=== PATIENT | female | born 1985 | race Caucasian/White ===

== ENCOUNTER 2020-07-03 15:15 | Emergency (ER) | payer MEDICAID, SELFPAY ==
[2020-07-03] VITALS (41 sets, daily range): BP systolic 104–128; BP diastolic 63–89; PULSE 61–94; RESP 12–20; TEMP 36.1; O2SAT 91–100
--- NOTE | ~2020-07-03 | XR_ITS ---
EXAMINATION: XR chest 1V portable DATE: 07/03/2020 16:25 INDICATION: Overdose. TECHNIQUE: A single frontal view of the chest was obtained. COMPARISON: None. FINDINGS: The lung volumes are small. There is mild atelectasis in the mid and lower lung zones. No p leural effusion or pneumothorax. The heart size is normal. IMPRESSION: 1. Small lung volumes with mild atelectasis in the mid and lower lung zones. Reviewed, dictated and finalized at location A. [facility] APPRENTICE
--- NOTE | 2020-07-03 15:25 | PC.NURSE ---
report to [facility], to continue care.
[2020-07-03] MEDS: SODIUM CHLORIDE 0.9% IV 1,000 ML 999 ML IV CONT (15:28)
--- NOTE | 2020-07-03 15:34 | PC.NURSE ---
call placed to [place] [facility]
[2020-07-03 15:53] LABS: Alveolar/Arterial O2 Gradient 38.7 mmHg; Base Excess ABG -2.7 mEq/l (+/-2.0); Fractional Inspired Oxygen 28 %; HCO3 ABG 22.8 mEq/l (22.0-26.0); Oxygen Content ABG 18.6 %vol (16.0-22.0); Oxygen Saturation ABG 97.9 % (95.0-100.0); Oxyhemoglobin 96.5 % THb (90.0-100.0); PCO2 ABG 41.8 mmHg (35.0-45.0); PO2 ABG 111.6 mmHg (80.0-100.0); PO2 FiO2 Ratio Arterial Blood 3.99 %; Total Hemoglobin 13.6 g/dL (12.0-18.0); pH ABG 7.354 (7.350-7.450)
[2020-07-03 15:55] LABS: Device NASAL CANNULA; Site Drawn LEFT BRACHIAL
--- NOTE | 2020-07-03 16:00 | ED.OVERDOSE ---
HPI - Overdose General Chief Complaint: Overdose <Meir Wilkinson MD - Last Filed: 07/04/20 18:49> Stated Complaint: Overdose <Meir Wilkinson MD - Last Filed: 07/04/20 18:49> Time Seen by Provider: 07/03/20 15:21 <Meir Wilkinson MD - Last Filed: 07/04/20 18:49> History of Present Illness HPI Narrative: Patient is a 34-year-old female who presents ER after a suicide attempt. Patient reports last night around 12:30 AM she ingested 30 tablets of 0.5 mg Xanax. States she is undergoing a lot of stress and is currently breaking up with her significant other. Denies previous attempts on her own life. Patient refuses to elaborate or expand on any additional issues that may be going on at home. She has no other complaints. <Meir Wilkinson MD - Last Filed: 07/04/20 18:49> Related Data Home Medications: Home Medications Medication Instructions Recorded Confirmed Unable to Obtain Home Medications 07/03/20 07/03/20 <Meir Wilkinson MD - Last Filed: 07/04/20 18:49> Allergies/Adverse Reactions: Allergies Allergy/AdvReac Type Severity Reaction Status Date / Time Unable to Assess Allergy Verified 07/03/20 15:50 <Meir Wilkinson MD - Last Filed: 07/04/20 18:49> Review of Systems Review of Systems: All systems reviewed & are unremarkable except as noted in HPI and below <Meir Wilkinson MD - Last Filed: 07/04/20 18:49> Constitutional: Constitutional: Denies chills, Denies fever(s) and Denies weakness <Meir Wilkinson MD - Last Filed: 07/04/20 18:49> Cardiovascular: Cardiovascular: Denies chest pain and Denies radiating jaw, neck or arm pain <Meir Wilkinson MD - Last Filed: 07/04/20 18:49> Respiratory: Respiratory: Denies cough, Denies dyspnea and Denies wheezing <Meir Wilkinson MD - Last Filed: 07/04/20 18:49> Gastrointestinal: Gastrointestinal: Denies abdominal pain, Denies diarrhea, Denies nausea and Denies vomiting <Meir Wilkinson MD - Last Filed: 07/04/20 18:49> Psychiatric: Psychiatric: Reports depression, Denies homicidal ideation and Reports suicidal ideation <Meir Wilkinson MD - Last Filed: 07/04/20 18:49> PMFSH Past Medical History Medical History: Medical History (Updated 07/04/20 @ 18:48 by Meir Wilkinson MD) Healthy female adult <Meir Wilkinson MD - Last Filed: 07/04/20 18:49> Surgical History Surgical History: Surgical History (Updated 07/03/20 @ 16:26 by Meir Wilkinson MD) History of cholecystectomy History of mandibular surgery <Meir Wilkinson MD - Last Filed: 07/04/20 18:49> Social History Social History: Social History Gender identity (if verbalized by the patient): Female <Meir Wilkinson MD - Last Filed: 07/04/20 18:49> Exam Narrative: Exam Narrative: GENERAL: Fatigued-appearing, well-nourished, and in no acute distress. HEAD: Normocephalic, atraumatic. EYES: PERRL and EOMI. ENT: Mucous membranes moist. CHEST: Clear to auscultation. No respiratory distress. HEART: Regular rate and rhythm. Normal peripheral pulses. ABDOMEN: Soft, nontender, nondistended. EXTREMITIES: Normal range of motion. No edema. SKIN: Warm, dry, no rash. NEURO: Alert and oriented x3. PSYCH: Depressed mood with flat affect and suicidal ideation. <Meir Wilkinson MD - Last Filed: 07/04/20 18:49> Course Course Emergency Course: Patient more awake. Given Narcan with no change, transient hypoxia due to SUSANNA. She admits to cocaine use last night in addition to her benzodiazepines. She is concerned about being admitted against her will but discussed she has no choice of medicine she tried in her own life. Her main concern is the fact that she has children who are supposed to be staying with her however they were at their father's house last night and I told her I am sure they could probably continue to stay with her other parent. CRISIS contacted. <Meir Wilkinson MD - Last Stefan
[2020-07-03 16:06] LABS: Basophils Percent Auto 0.4 % (0.2-1.2); Eosinophils Absolute Auto 0.1 K/mm3 (0-0.3); Eosinophils Percent Auto 2.5 % (0-4.4); Hematocrit 39.9 % (37.0-47.0); Hemoglobin 13.3 g/dL (12.0-15.0); Immature Granulocyte Absolute 0.02 K/mm3 (0.00-0.031); Immature Granulocyte Percent A 0.4 % (0-0.5); Lymphocytes Absolute Auto 1.46 K/mm3 (0.9-3.2); Lymphocytes Percent Auto 28.3 % (18.3-44.2); Mean Corpuscular HGB Conc 33.3 g/dl (32-36); Mean Corpuscular Hemoglobin 29.3 pg (26-34); Mean Corpuscular Volume 87.9 fl (80-100); Mean Platelet Volume 9.3 fl (7.4-10.4); Monocytes Absolute Auto 0.4 K/mm3 (0.1-0.6); Monocytes Percent Auto 7.8 % (2.6-8.5); Neutrophils Absolute Auto 3.1 K/mm3 (1.3-6.7); Neutrophils Percent Auto 60.6 % (45.5-73.1); Platelet Count Result 206 k/mm3 (150-375); Red Blood Count 4.54 M/mm3 (4.2-5.4); Red Cell Distribution Width 12.4 % (11.5-14.5); White Blood Count 5.2 K/mm3 (4.5-10.0)
[2020-07-03 16:17] LABS: Acetaminophen < 10 ug/mL (10-30); Ethanol < 10 mg/dL (<10); Salicylate < 1.0 mg/dL (2-20)
[2020-07-03 16:18] LABS: Alanine Aminotransferase 79 U/L (4-35); Albumin Level 3.9 g/dL (3.5-5.1); Alkaline Phosphatase 58 U/L (38-126); Anion Gap 6 mmol/L (8-16); Aspartate Amino Transferase 63 U/L (14-36); Bilirubin,Total 1.3 mg/dL (0.2-1.3); Blood Urea Nitrogen 14 mg/dL (7-17); Calcium 8.7 mg/dL (8.4-10.2); Carbon Dioxide 28 mmol/L (22-30); Chloride 108 mmol/L (98-107); Estimated CRCL calculation 100 ml/min; Estimated Glomerular Filt Rate > 60; Glucose 86 mg/dL (65-105); Lactic Acid Reflex 0.6 mmol/L (0.7-2.1); Partial Thromboplastin Time 28.1 SECONDS (22.3-36.8); Potassium 3.7 mmol/L (3.4-5.0); Sodium 142 mmol/L (137-145)
[2020-07-03] MEDS: NALOXONE HCL 0.4 MG/ML VIAL IV PUSH (16:47)
[2020-07-03 17:31] LABS: Add Urine Microscopic? NO; Appearance Urine Clear (Clear); Bilirubin Urine Negative (Negative); Blood Urine Negative (Negative); Color Urine Yellow (Yellow); Glucose Urine UA Negative (Negative); Ketones Urine Negative (Negative); Leukocyte Esterase Ur Negative LEU/UL (Negative); Nitrate Urine Negative (Negative); Protein Urine Negative (Negative); Specific Grav Ur 1.014 (1.001-1.035); Urobilinogen Urine Negative mg/dL (<2.0)
[2020-07-03 17:51] LABS: Amphetamine Screen Urine Negative (Negative); Barbiturate Screen Urine Negative (Negative); Benzodiazepines Screen Urine Positive (Negative); Cannabinoid Screen Urine Negative (Negative); Cocaine Screen Urine Positive (Negative); Methadone Screen Urine Negative (Negative); Opiate Screen Urine Negative (Negative); Phencyclidine Screen Urine Negative (Negative)
--- NOTE | 2020-07-03 18:03 | PC.NURSE ---
crisis called to evaluate patient
--- NOTE | 2020-07-03 19:17 | PC.NURSE ---
assembly worker here to evaluate patient
--- NOTE | 2020-07-03 21:11 | PC.NURSE ---
[facility] called to report that they have no open beds at this time and they will add patient to a wait list
--- NOTE | 2020-07-03 21:38 | PC.NURSE ---
requested paperwork faxed to [facility]
--- NOTE | 2020-07-03 22:28 | PC.NURSE ---
spoke with Roma at [place] [facility] . has been closed and patient cleared
--- NOTE | 2020-07-03 22:49 | PC.NURSE ---
more paperwork faxed to [facility] per their request
--- NOTE | 2020-07-03 23:06 | PC.NURSE ---
rn report from Lori.
--- NOTE | 2020-07-04 00:41 | PC.NURSE ---
rn report given to Beatriz, [place] [phone].
--- NOTE | 2020-07-04 00:44 | PC.NURSE ---
Accepting Dr. Price, Room 200-1
--- NOTE | 2020-07-04 02:09 | PC.NURSE ---
ortez has arrived
[2020-07-04 17:05] LABS: SARS-CoV-2 RNA PCR Negative
== END 2020-07-04 02:24 ==
PROVIDERS: Emergency Provider Emergency Medicine; PCP Physician Assistant
DX: T42.4X2A Poisoning by benzodiazepines, intentional self-harm, initial encounter (principal); F32.9 Major depressive disorder, single episode, unspecified; Z20.828 Contact with and (suspected) exposure to other viral communicable diseases
CPT/HCPCS: 36415; 36600; 51701; 71045; 80053; 80307; 81003; 81025; 82805; 83605; 85025; 85610; 85730; 87635; 96361; 96374; 99285; C9803; J2310; J7030; U0003

== ENCOUNTER 2021-12-22 10:49 | Outpatient (CLI) | payer BC, SELFPAY ==
[2021-12-22 11:48] LABS: Alanine Aminotransferase 36 U/L (6-35); Albumin Level 4.5 g/dL (3.5-5.1); Alkaline Phosphatase 67 U/L (38-126); Anion Gap 7 mmol/L (8-16); Aspartate Amino Transferase 29 U/L (14-36); Bilirubin,Total 1.1 mg/dL (0.2-1.3); Blood Urea Nitrogen 17 mg/dL (7-17); Carbon Dioxide 27 mmol/L (22-30); Chloride 102 mmol/L (98-107); Cholesterol 188 mg/dL (0-200); Estimated Glomerular Filt Rate > 60; Glucose 83 mg/dL (65-110); HDL Direct 41 mg/dL; Sodium 136 mmol/L (137-145); Triglycerides 229 mg/dL (<150)
[2021-12-22 11:55] LABS: Hematocrit 41.8 % (37.0-47.0); Hemoglobin 13.7 g/dL (12.0-15.0); Mean Corpuscular HGB Conc 32.8 g/dl (32-36); Mean Corpuscular Volume 85.3 fl (80-100); Mean Platelet Volume 10.2 fl (7.4-10.4); Platelet Count Result 255 k/mm3 (150-375); Red Cell Distribution Width 13.1 % (11.5-14.5); White Blood Count 5.8 K/mm3 (4.5-10.0)
[2021-12-22 11:59] LABS: LDL Cholesterol Direct 84 mg/dL
== END 2021-12-22 10:50 | disposition home or self-care (01) ==
PROVIDERS: PCP Physician Assistant; Visit Provider Physician Assistant
DX: Z01.812 Encounter for preprocedural laboratory examination (principal)
CPT/HCPCS: 36415; 80053; 80061; 85027

== ENCOUNTER 2022-07-06 20:13 | Emergency (ER) | payer BC, SELFPAY ==
[2022-07-06 20:16] VITALS: BP 148/111; PULSE 73; RESP 18; TEMP 36.3; O2SAT 98
[2022-07-06 22:36] LABS: Basophils Percent Auto 0.5 % (0.2-1.2); Hematocrit 45.6 % (37.0-47.0); Hemoglobin 15.8 g/dL (12.0-15.0); Immature Granulocyte Absolute 0.01 K/mm3 (0.00-0.031); Immature Granulocyte Percent A 0.2 % (0-0.5); Lymphocytes Absolute Auto 1.36 K/mm3 (0.9-3.2); Lymphocytes Percent Auto 31.7 % (18.3-44.2); Mean Corpuscular HGB Conc 34.6 g/dl (32-36); Mean Corpuscular Hemoglobin 29.9 pg (26-34); Mean Corpuscular Volume 86.4 fl (80-100); Mean Platelet Volume 10.2 fl (7.4-10.4); Monocytes Absolute Auto 0.4 K/mm3 (0.1-0.6); Monocytes Percent Auto 10.3 % (2.6-8.5); Neutrophils Absolute Auto 2.5 K/mm3 (1.3-6.7); Neutrophils Percent Auto 57.3 % (45.5-73.1); Platelet Count Result 195 k/mm3 (150-375); Red Blood Count 5.28 M/mm3 (4.2-5.4); Red Cell Distribution Width 13.2 % (11.5-14.5); White Blood Count 4.3 K/mm3 (4.5-10.0)
[2022-07-06 23:02] LABS: Alanine Aminotransferase 122 U/L (6-35); Albumin Level 4.6 g/dL (3.5-5.1); Alkaline Phosphatase 101 U/L (38-126); Anion Gap 14 mmol/L (8-16); Aspartate Amino Transferase 125 U/L (14-36); Bilirubin,Total 0.8 mg/dL (0.2-1.3); Blood Urea Nitrogen 14 mg/dL (7-17); Calcium 8.9 mg/dL (8.4-10.2); Carbon Dioxide 18 mmol/L (22-30); Chloride 107 mmol/L (98-107); Estimated CRCL calculation 142 ml/min; Estimated Glomerular Filt Rate > 60; Glucose 125 mg/dL (65-110); Lipase 46 U/L (23-300); Potassium 3.3 mmol/L (3.4-5.0); Sodium 139 mmol/L (137-145)
[2022-07-06 23:16] LABS: Influenza A QL RT-PCR Positive (Negative); Influenza B QL RT-PCR Negative (Negative); RSV RNA, RT-PCR Negative (Negative); SARS-CoV-2 RNA PCR Negative
--- NOTE | 2022-07-06 23:56 | ED.NAVMDI ---
HPI - Nausea/Vomiting/Diarrhea General Chief complaint: Nausea/Vomiting/Diarrhea Stated complaint: flu like sxs Time Seen by Provider: 07/06/22 23:25 History of Present Illness HPI Narrative: 36-year-old female status post gastric bypass presents to the emergency room for evaluation of body aches, headache, productive cough nausea vomiting. Patient states that she has been experiencing a fever intermittently and since Tuesday has been taking Tylenol for it. Related Data Allergies Allergy/AdvReac Type Severity Reaction Status Date / Time vancomycin Allergy Anaphylaxis Verified 07/06/22 20:19 morphine AdvReac Vomiting Verified 07/06/22 20:19 Review of Systems Review of Systems: CONSTITUTIONAL: Denies fever, chills, or sweats. EYES: Denies visual changes, redness, or discharge. ENT: Denies rhinorrhea, congestion, sore throat, or otalgia. CARDIOVASCULAR: Denies chest pain, palpitations, or edema. RESPIRATORY: Denies cough or dyspnea. GASTROINTESTINAL: Reports nausea and vomiting GENITOURINARY: Denies dysuria or hematuria. SKIN: Denies rash or itching. MUSCULOSKELETAL: Denies back pain, joint pain, or myalgia. NEUROLOGIC: Denies headache, numbness, dizziness, or weakness. PSYCHIATRIC: Denies anxiety or depression. [facility] Past Medical History Medical History (Updated 07/07/22 @ 00:20 by Emerson Maciel APRN) Healthy female adult Surgical History Surgical History (Updated 07/03/20 @ 16:26 by Meir Wilkinson MD) History of cholecystectomy History of mandibular surgery Social History Social History Gender identity (if verbalized by the patient): Female Exam Narrative: GENERAL: obvious emotional and physical distress. HEAD: Normocephalic, atraumatic. EYES: Conjunctivae normal, PERRLA and EOMI. CHEST: Clear to auscultation. No respiratory distress. No wheezes rales or rhonchi. HEART: Regular rate and rhythm. No murmur heard. Normal peripheral pulses. ABDOMEN: Soft, nontender, nondistended, normal active bowel sounds. EXTREMITIES: Normal range of motion. No edema. No clubbing or cyanosis SKIN: Warm, dry, no rash. No noted wounds NEURO: No focal deficits. Alert and oriented x3. MAEW. CN's II-XI intact bilaterally, normal gait PSYCH: Cooperative. anxious. Course Vital Signs Vital signs: Vital Signs Temperature 36.3 C L 07/06/22 20:16 Pulse Rate 73 07/06/22 20:16 Respiratory Rate 18 07/06/22 20:16 Blood Pressure 148/111 H 07/06/22 20:16 Pulse Oximetry 98 07/06/22 20:16 Oxygen Delivery Room Air 07/06/22 20:16 Temperature 36.3 C L 07/06/22 20:16 Pulse Rate 73 07/06/22 20:16 Respiratory Rate 18 07/06/22 20:16 Blood Pressure 148/111 H 07/06/22 20:16 Pulse Oximetry 98 07/06/22 20:16 Oxygen Delivery Room Air 07/06/22 20:16 MDM - Nausea/Vomiting/Diarrhea MDM Narrative Medical decision making narrative: 36-year-old female presented to the emergency room complaining of body aches and nausea. Patient was found to be flu a positive. Given a liter of fluid and some Zofran. Patient states that she experienced some significant improvement in symptoms. Lab Data Result diagrams: 07/06/22 22:25 07/06/22 22:25 Labs: Lab Results 07/06/22 07/06/22 07/06/22 Range/Units 22:25 22:25 22:25 WBC 4.3 L (4.5-10.0) K/mm3 RBC 5.28 (4.2-5.4) M/mm3 Hgb 15.8 H (12.0-15.0) g/dL Hct 45.6 (37.0-47.0) % MCV 86.4 (80-100) fl MCH 29.9 (26-34) pg MCHC 34.6 (32-36) g/dl RDW 13.2 (11.5-14.5) % Plt Count 195 (150-375) k/mm3 MPV 10.2 (7.4-10.4) fl Immature Gran % (Auto) 0.2 (0-0.5) % Neut % (Auto) 57.3 (45.5-73.1) % Lymph % (Auto) 31.7 (18.3-44.2) % [place] % (Auto) 10.3 H (2.6-8.5) % Eos % (Auto) 0.0 (0-4.4) % Baso % (Auto) 0.5 (0.2-1.2) % Lymph # (Auto) 1.36 (0.9-3.2) K/mm3 [place] # (Auto) 0.4 (0.1-0.6) K/mm3 Eos # (Auto) 0.0 (0-0.3) K/mm3 Baso # (Auto) 0.0 (0.
[2022-07-06] MEDS: SODIUM CHLORIDE 0.9% IV 1,000 ML 999 ML IV CONT (23:58)
[2022-07-06] MEDS: ONDANSETRON INJ 4 MG/2 ML VIAL IV PUSH (23:58)
== END 2022-07-07 00:44 | disposition home or self-care (01) ==
PROVIDERS: Emergency Medicine; Emergency Provider Nurse Practitioner Family; PCP Physician Assistant
DX: J10.1 Influenza due to other identified influenza virus with other respiratory manifestations (principal); R11.10 Vomiting, unspecified; Z20.822 Contact with and (suspected) exposure to COVID-19; Z98.84 Bariatric surgery status
CPT/HCPCS: 36415; 80053; 83690; 85025; 87637; 96365; 96375; 99284; J0131; J2405; J7030